=== PATIENT | male | born 1960 | race African-American/Black ===

== ENCOUNTER 2020-10-25 08:48 | Emergency (ER) | payer BC, SELFPAY ==
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
[2020-10-25 08:48] VITALS: BP 151/101; PULSE 98; RESP 20; TEMP 36.9; O2SAT 97
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
[2020-10-25 11:08] VITALS: BP 178/89; PULSE 75; RESP 20; TEMP 36.9; O2SAT 97
== END 2020-10-25 11:27 | disposition home or self-care (01) ==
PROVIDERS: Emergency Provider Family Medicine
DX: S01.81XA Laceration without foreign body of other part of head, initial encounter (principal); V89.2XXA Person injured in unspecified motor-vehicle accident, traffic, initial encounter
CPT/HCPCS: 70450; 70486; 72125; 99283; 99284